=== PATIENT | female | born 1995 | race Caucasian/White ===

== ENCOUNTER 2017-09-03 15:42 | Emergency (ER) | payer MEDICAID ==
[2017-09-03 15:48] VITALS: BP 110/60
[2017-09-03] MEDS ORDERED: TORADOL IM ONE (17:37)
[2017-09-03] MEDS ORDERED: TYLENOL PO ONE (17:44)
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
== END 2017-09-03 18:47 | disposition home or self-care (01) ==
LOC: ED 15:42
DX: M54.41 Lumbago with sciatica, right side (principal); G89.29 Other chronic pain; Z88.0 Allergy status to penicillin
CPT/HCPCS: 99282; J1885

== ENCOUNTER 2017-12-29 12:51 | Outpatient (CLI) | payer MEDICAID ==
[2017-12-29 13:22] VITALS: BP 114/66
[2017-12-29] MEDS ORDERED: LACTATED RINGERS 500 ML IV ONE (13:25)
[2017-12-29 14:08] LABS: Bacteria,Urine 1+ /HPF (Negative); Bilirubin,Urine NEG (Negative); Blood,Urine NEG (Negative); Color,Urine Yellow (Yellow); Mucus,Urine FEW /HPF; Protein,Urine <15 mg/dL mg/dL (Negative); Urobilinogen,Urine < 2.0 mg/dL (<2.0)
[2017-12-29] MEDS ORDERED: NORMOSOL-R PH 7.4 1,000 ML IV ONE (14:08)
== END 2017-12-29 17:50 | disposition home or self-care (01) ==
LOC: TRG 12:51 → APU 12:53 → LD 13:13 → TRG 17:50
PROVIDERS: ATTEND Obstetrics & Gynecology
DX: O62.9 Abnormality of forces of labor, unspecified (principal); Z3A.30 30 weeks gestation of pregnancy
CPT/HCPCS: 59025; 81001; 96360

== ENCOUNTER 2018-02-17 22:14 | Outpatient (CLI) | payer MEDICAID ==
[2018-02-18 14:28] VITALS: BP 114/62
== END 2018-02-18 00:10 | disposition home or self-care (01) ==
LOC: TRG 22:14
PROVIDERS: ATTEND Obstetrics & Gynecology
DX: O62.9 Abnormality of forces of labor, unspecified (principal); Z3A.38 38 weeks gestation of pregnancy
CPT/HCPCS: 59025

== ENCOUNTER 2018-02-18 10:53 | Outpatient (CLI) | payer MEDICAID ==
[2018-02-18] MEDS ORDERED: VISTARIL PO PRN (14:43)
== END 2018-02-18 19:00 | disposition home or self-care (01) ==
LOC: TRG 10:53
PROVIDERS: ATTEND Obstetrics & Gynecology
DX: O47.1 False labor at or after 37 completed weeks of gestation (principal); Z3A.38 38 weeks gestation of pregnancy
CPT/HCPCS: 59025; Q0177

== ENCOUNTER 2018-02-21 15:34 | Inpatient (IN) | payer MEDICAID ==
[2018-02-21] MEDS ORDERED: ePHEDrine SULFATE IV PRN ×3 (18:22→20:12)
[2018-02-21] MEDS ORDERED: BRETHINE IVP PRN ×2 (18:22→19:47)
[2018-02-21] MEDS ORDERED: BRETHINE SUB-Q PRN ×2 (18:22→19:47)
[2018-02-21] MEDS ORDERED: MINERAL OIL PO PRN ×2 (18:22→19:47)
[2018-02-21] MEDS ORDERED: XYLOCAINE 2% INFILTRATI ONE ×2 (18:22→19:47)
[2018-02-21 18:51] LABS: Hematocrit 30.2 % (30.3-42.9); Hemoglobin 9.7 gm/dl (10.1-14.3); Mean Corpuscular HGB Conc 32 % (30-34); Mean Corpuscular Volume 75 fl (79-97); Platelet Count 215 K/mm3 (140-440); Red Blood Count 4.03 M/mm3 (3.65-5.03)
[2018-02-21 18:55] LABS: Mean Corpuscular Hemoglobin 24 pg (28-32)
[2018-02-21] MEDS ORDERED: PITOCin/NS 30 UNIT/500ML 30 UNITS/500 ML BAG IV SCH ×4 (19:00→20:00)
[2018-02-21] MEDS ORDERED: PITOCin/NS 20 UNIT/1000ML DRIP 20 UNITS/1,000 ML BAG IV SCH ×3 (19:00→23:45)
[2018-02-21] MEDS: LACTATED RINGERS 1,000 ML IV SCH ×3 (19:30→21:11)
[2018-02-21] MEDS ORDERED: SUBLIMAZE ONE (19:43)
[2018-02-21] MEDS ORDERED: SUBLIMAZE IV PRN (19:47)
[2018-02-21] MEDS ORDERED: STADOL IV PRN (19:47)
[2018-02-21] MEDS ORDERED: ZOFRAN IV PRN ×2 (19:47→23:04)
--- NOTE | 2018-02-21 19:56 | History and Physical Report ---
History of Present Illness Date of examination: 02/21/18 Date of admission: 02/21/18 15:35 Chief complaint: Labor History of present illness: Pt is a 22yo BF EDC 03/03/18; EGA 38 4/7 weeks presents to L&D complaining of RUC's q 3-4 mins. She received care at [facility] since 11 weeks and course has been unremarkable. records are available and GBS is Negative. Past History Past Medical History: no pertinent history Past Surgical History: no surgical history Family/Genetic History: diabetes, hypertension, other (Lupus) Social history: no significant social history, single - Obstetrical History Expected Date of Delivery: 03/03/18 Actual Gestation: 38 Week(s) 4 Day(s) : 2 Medications and Allergies Allergies Allergy/AdvReac Type Severity Reaction Status Date / Time penicillin Allergy Swelling Verified 12/08/15 13:59 Home Medications Medication Instructions Recorded Confirmed Last Taken Type No Known Home Medications [No 02/18/18 02/21/18 Unknown History Reported Home Medications] Active Meds: Active Medications Butorphanol Tartrate (Stadol) 2 mg IV Q2H PRN PRN Reason: Pain , Severe (7-10) Ephedrine Sulfate (Ephedrine Sulfate) 10 mg IV Q2M PRN PRN Reason: Hypotension Ephedrine Sulfate (Ephedrine Sulfate) 10 mg IV Q2M PRN PRN Reason: Hypotension Fentanyl (Sublimaze) 100 mcg IV Q2H PRN PRN Reason: Labor Pain Lactated Ringer's (Lactated Ringers) 1,000 mls @ 125 mls/hr IV DIRECT DOUG Last Admin: 02/21/18 19:30 Dose: 125 mls/hr Oxytocin/Sodium Chloride (Pitocin/Ns 20 Unit/1000ml Drip) 20 units in 1,000 mls @ 125 mls/hr IV DIRECT DOUG Oxytocin/Sodium Chloride (Pitocin/Ns 30 Unit/500ml) 30 units in 500 mls @ 4 mls /hr IV TITR DOUG; Protocol Last Admin: 02/21/18 19:31 Dose: 4 ml/hr, 4 mls/hr Oxytocin/Sodium Chloride (Pitocin/Ns 30 Unit/500ml) 30 units in 500 mls @ 1 mls /hr IV TITR DOUG; Protocol Lactated Ringer's (Lactated Ringers) 1,000 mls @ 125 mls/hr IV DIRECT DOUG Oxytocin/Sodium Chloride (Pitocin/Ns 20 Unit/1000ml Drip) 20 units in 1,000 mls @ 125 mls/hr IV DIRECT DOUG Oxytocin/Sodium Chloride (Pitocin/Ns 30 Unit/500ml) 30 units in 500 mls @ 4 mls /hr IV TITR DOUG; Protocol Oxytocin/Sodium Chloride (Pitocin/Ns 30 Unit/500ml) 30 units in 500 mls @ 1 mls /hr IV TITR DOUG; Protocol Lidocaine (Xylocaine 2%) 20 ml INFILTRATI ONCE ONE Stop: 02/21/18 19:48 Mineral Oil (Mineral Oil) 30 ml PO QHS PRN PRN Reason: Constipation Mineral Oil (Mineral Oil) 30 ml PO QHS PRN PRN Reason: Constipation Ondansetron HCl (Zofran) 4 mg IV Q8H PRN PRN Reason: Nausea And Vomiting Terbutaline Sulfate (Brethine) 0.25 mg SUB-Q ONCE PRN PRN Reason: Hyperstimulation/Hypertonicity Terbutaline Sulfate (Brethine) 0.25 mg IVP ONCE PRN PRN Reason: Hyperstimulation/Hypertonicity Terbutaline Sulfate (Brethine) 0.25 mg SUB-Q ONCE PRN PRN Reason: Hyperstimulation/Hypertonicity Terbutaline Sulfate (Brethine) 0.25 mg IVP ONCE PRN PRN Reason: Hyperstimulation/Hypertonicity Review of Systems All systems: negative - Vital Signs Vital signs: Vital Signs Pulse BP Pulse Ox 129 H 119/62 98 02/21/18 15:50 02/21/18 15:50 02/21/18 15:50 Temp Pulse Resp BP Pulse Ox 98.3 F 83 19 140/74 99 02/21/18 17:58 02/21/18 19:22 02/21/18 17:58 02/21/18 19:22 02/21/18 18:47 - Physical Exam Breasts: Positive: deferred Cardiovascular: Regular rate Lungs: Positive: Clear to auscultation Abdomen: Positive: normal appearance Genitourinary (Female): Positive: normal external genitalia Uterus: Positive: enlarged Extremities: Positive: normal - Obstetrical FHR: category 1 Uterine Contraction Monitor Mode: External Cervical Dilatation: 4.5 (per nurse) Cervical Effacement Percentage: 50 (per nurse) station: -3 Uterine Contraction Pattern: Regular Uterine Tone Measurement Phase: Contraction Uterine Contraction Intensity: Moderate Results Result Diagrams: 02/21/18 18:00 Abnormal lab results 02/21/18 Range/Units 18:00 WBC 12.2 H (4.5-11.0) K/mm3 Hgb 9.7 L (10.1-14.3) gm/dl Hct 30.2 L (30.3-42.9) % MCV 75 L (79-97) fl MCH 24 L (28-32) pg RDW 17.0 H (13.2-15.2) % All other labs normal. Assessment and Plan - Patient Problems (1) 38 weeks gestation of Onset Date: 02/21/18 Current Visit: Yes Status: Acute Plan to address problem: A: IUP @ 38 4/7 weeks in labor P: Admit to L&D for expectant vaginal delivery
[2018-02-21] MEDS ORDERED: LACTATED RINGERS 1,000 ML IV SCH (20:00)
[2018-02-21] MEDS ORDERED: NARCAN 2 MG/2 ML IV PRN (20:12)
--- NOTE | 2018-02-21 20:12 | Anesthesia Consultation ---
Anesthesia Consult and Med Hx Date of service: 02/21/18 - Airway Anesthetic Teeth Evaluation: Good ROM Head & Neck: Adequate Mental/Hyoid Distance: Adequate Mallampati Class: Class II Intubation Access Assessment: Probably Good - Pre-Operative Health Status ASA Pre-Surgery Classification: ASA2 Proposed Anesthetic Plan: Epidural, Spinal - Pulmonary Hx Asthma: No COPD: No Hx Pneumonia: No - Cardiovascular System Hx Hypertension: No - Central Nervous System Hx Seizures: No Hx Psychiatric Problems: No - Endocrine Hx Renal Disease: No Hx End Stage Renal Disease: No Hx Hypothyroidism: No Hx Hyperthyroidism: No - Hematic Hx Anemia: No Hx Sickle Cell Disease: No - Other Systems Hx Alcohol Use: No
[2018-02-21] MEDS ORDERED: fentaNYL-BUPIV 2 MCG/ML-0.125% 200 MCG/100 ML BAG EPIDURAL SCH (21:00)
--- NOTE | 2018-02-21 23:02 | Procedure Note ---
OB Delivery Note - Delivery Date of Delivery: 02/21/18 Surgeon: KAYLYNN ALONSO Estimated blood loss: 100cc - Vaginal Delivery presentation: vertex Delivery position: OA Delivery induction: none Delivery augmentation: rupture of membranes, pitocin Delivery monitor: external FHT, external uterine Route of delivery: Delivery placenta: spontaneous Delivery cord: nuchal cord (x1), 3 umbilical vessels Episiotomy: none Delivery laceration: 1st degree (perineal) Delivery repair: vicryl Anesthesia: epidural Delivery comments: delivered OA and placed on Mom's chest for [id number] bonding and delayed cord clamping, cut by Dad. - A at 1 minute: 8 at 5 minutes: 9 Infant Gender: Male (3520gms)
[2018-02-21] MEDS ORDERED: PHENERGAN PO PRN (23:04)
[2018-02-21] MEDS ORDERED: LANSINOH TP PRN (23:04)
[2018-02-21] MEDS ORDERED: PHENERGAN PR PRN (23:04)
[2018-02-21] MEDS ORDERED: TYLENOL PO PRN (23:04)
[2018-02-21] MEDS ORDERED: DULCOLAX PR PRN (23:04)
[2018-02-21] MEDS ORDERED: TUCKS PAD TP PRN (23:04)
[2018-02-21] MEDS ORDERED: BENADRYL PO PRN (23:04)
[2018-02-21] MEDS ORDERED: MILK OF MAGNESIA PO PRN (23:04)
[2018-02-21] MEDS ORDERED: SODIUM CHLORIDE FLUSH SYRINGE 10 ML IV NR (23:45)
[2018-02-22] MEDS ORDERED: MOTRIN PO SCH
[2018-02-22] MEDS ORDERED: BOOSTRIX IM ONE (06:00)
[2018-02-22] MEDS ORDERED: M-M-R II VACCINE SUB-Q ONE (06:00)
--- NOTE | 2018-02-22 09:42 | Progress Note ---
Assessment and Plan A: PPD #1- stable P: Plan discharge in am Subjective - Subjective Date of service: 02/22/18 Principal diagnosis: Patient reports: appetite normal : doing well Objective - Vital Signs Latest vital signs: Vital Signs Temp Pulse Resp BP BP Pulse Ox 02/22/18 08:00 97.4 F L 79 20 115/66 02/22/18 04:40 98.2 F 86 20 120/78 98 02/22/18 02:08 98.0 F 97 H 20 124/75 100 02/22/18 00:03 79 126/67 02/21/18 23:48 88 134/74 02/21/18 23:33 99 H 133/70 02/21/18 23:19 85 100 02/21/18 23:18 85 129/72 02/21/18 23:14 83 100 02/21/18 23:09 95 H 100 02/21/18 23:04 89 100 02/21/18 22:59 87 100 02/21/18 22:54 83 150/65 91 02/21/18 22:49 79 98 02/21/18 22:44 84 100 18 22:39 72 100 18 22:34 78 100 18 22:29 81 100 18 22:24 72 100 02/21/18 22:19 99 H 100 18 22:15 71 127/73 0518 22:14 66 100 18 22:09 72 100 18 22:04 67 100 02/21/18 22:01 68 130/72 18 21:59 77 100 0518 21:54 85 100 0518 21:49 89 100 0518 21:46 83 114/59 0518 21:44 81 100 0518 21:39 86 100 0518 21:34 80 100 0518 21:30 82 113/59 0518 21:29 85 100 0518 21:23 83 100 0518 21:19 74 100 0518 21:16 75 127/63 0518 21:14 83 100 0518 21:08 85 100 05/19/18 21:04 80 100 05/19/18 20:59 73 100 05/19/18 20:55 84 125/69 05/19/18 20:54 90 100 05/19/18 20:52 75 120/67 05/19/18 20:49 85 100 05/19/18 20:44 78 100 05/19/18 20:43 90 115/64 05/19/18 20:41 88 120/62 05/19/18 20:39 78 128/66 100 05/19/18 20:37 76 130/71 05/19/18 20:35 77 125/72 05/19/18 20:33 94 H 118/84 100 05/19/18 20:31 83 116/71 05/19/18 20:29 98 H 112/72 100 05/19/18 20:27 106 H 121/72 05/19/18 20:25 104 H 130/74 05/19/18 20:24 110 H 100 05/19/18 20:23 113 H 128/73 05/19/18 20:19 94 H 85 05/19/18 19:22 83 140/74 05/19/18 18:47 96 H 99 05/19/18 18:42 102 H 97 05/19/18 18:37 109 H 97 05/19/18 18:32 103 H 98 05/19/18 18:27 104 H 98 05/19/18 18:22 105 H 99 05/19/18 18:17 115 H 99 05/19/18 18:12 113 H 99 05/19/18 18:07 102 H 98 05/19/18 18:04 109 H 108/58 05/19/18 18:02 112 H 98 05/19/18 17:58 98.3 F 111 H 19 108/58 99 05/19/18 16:25 126 H 98 05/19/18 16:20 112 H 97 05/19/18 16:15 103 H 97 05/19/18 16:10 129 H 96 05/19/18 16:05 102 H 96 05/19/18 16:00 116 H 98 05/19/18 15:55 120 H 95 05/19/18 15:50 129 H 119/62 98 Intake and Output 05/19/18 05/20/18 05/20/18 22:59 06:59 14:59 Intake Total 210.417 360 120 Output Total 1550 400 Balance 210.417 -1190 -280 Intake: IV 210.417 Lactated Ringers 1,000 ml 210.417 @ 125 mls/hr IV DIRECT DOUG Rx#:[id number] Oral 360 120 Output: Urine 1550 400 Void 1550 400 Other: Total, Intake Amount 120 120 Total, Output Amount 500 400 Weight 175 lb Estimated Blood Loss 100 - Exam Breasts: Present: deferred Cardiovascular: Present: Regular rate Lungs: Present: Clear to auscultation Abdomen: Present: soft Vulva: both: normal Uterus: Present: fundal height below umbilicus Extremities: Present: normal Deep Tendon Reflex Grade: Normal +2 - Labs Labs: Abnormal lab results 02/21/18 Range/Units 18:00 WBC 12.2 H (4.5-11.0) K/mm3 Hgb 9.7 L (10.1-14.3) gm/dl Hct 30.2 L (30.3-42.9) % MCV 75 L (79-97) fl MCH 24 L (28-32) pg RDW 17.0 H (13.2-15.2) %
--- NOTE | 2018-02-22 09:43 | Discharge Summary ---
Providers - Providers Date of Admission: 02/21/18 15:35 Date of discharge: 02/23/18 Attending physician: SHANTANU MENDEZ MD Primary care physician: SHANTANU MENDEZ MD Hospitalization Reason for admission: active labor Delivery: Episiotomy: none Laceration: 1st degree Other procedures: none complications: none Discharge diagnosis: IUP at term delivered Rudolph baby: male Condition at discharge: Good Disposition: DC-01 TO HOME OR SELFCARE Plan - Provider Discharge Summary Activity: routine, no sex for 6 weeks, no strenuous exercise Diet: routine Instructions: routine Additional instructions: [] Smoking cessation referral if applicable(refer to patient education folder for contact #) [] Refer to [facility]'s [facility] Booklet Call your doctor immediately for: * Fever > 100.5 * Heavy vaginal bleeding ( >1 pad per hour) * Severe persistent headache * Shortness of breath * Reddened, hot, painful area to leg or breast * Drainage or odor from incision. * Keep incision clean and dry at all times and follow doctor's instructions regarding bathing/showering - Follow up plan Follow up: SHANTANU MENDEZ MD [Primary Care Provider] - 6 Weeks
[2018-02-22] MEDS ORDERED: FEOSOL PO SCH (10:00)
[2018-02-22] MEDS ORDERED: PRENATAL VITAMIN PO SCH (10:00)
[2018-02-22] MEDS ORDERED: COLACE PO SCH (10:00)
[2018-02-22] MEDS: NORCO 5/325 PO PRN ×2 (10:52→18:37)
[2018-02-22 12:28] LABS: Hematocrit 27.1 % (30.3-42.9); Hemoglobin 9.1 gm/dl (10.1-14.3)
[2018-02-23] MEDS: NORCO 5/325 PO PRN ×2 (05:54→12:34)
[2018-02-23 09:58] VITALS: BP 121/81
== END 2018-02-23 16:01 | disposition home or self-care (01) | DRG 775 ==
LOC: TRG 15:34 → LD 15:35 → TRG 15:35 → OB 02-22 01:00
PROVIDERS: ADMIT Obstetrics & Gynecology; ATTEND Obstetrics & Gynecology
PROC: 10E0XZZ Delivery of Products of Conception, External Approach (ICD-10-PCS; principal; 2018-02-21)
PROC: 0HQ9XZZ Repair Perineum Skin, External Approach (ICD-10-PCS; 2018-02-21)
PROC: 3E0R3BZ Introduction of Anesthetic Agent into Spinal Canal, Percutaneous Approach (ICD-10-PCS; 2018-02-21)
PROC: 00HU33Z Insertion of Infusion Device into Spinal Canal, Percutaneous Approach (ICD-10-PCS; 2018-02-21)
PROC: 3E0234Z Introduction of Serum, Toxoid and Vaccine into Muscle, Percutaneous Approach (ICD-10-PCS; 2018-02-22)
DX: O69.81X0 Labor and delivery complicated by cord around neck, without compression, not applicable or unspecified (principal); O70.0 First degree perineal laceration during delivery; Z3A.38 38 weeks gestation of pregnancy; Z37.0 Single live birth; Z82.49 Family history of ischemic heart disease and other diseases of the circulatory system; Z83.3 Family history of diabetes mellitus; Z88.0 Allergy status to penicillin; Z23 Encounter for immunization
CPT/HCPCS: 36415; 85014; 85018; 85027; 86592; 86850; 86900; 86901; 99211; A6250; G0463; J2590; J3010; J7120